=== PATIENT | male | born 1950 | race Caucasian/White ===

== ENCOUNTER 2022-09-28 17:01 | Emergency (ER) | payer MEDICARE, SELFPAY ==
[2022-09-28 17:24] VITALS: BP 164/94; PULSE 76; RESP 20; TEMP 36.7; O2SAT 95; BMI 31.4
--- NOTE | 2022-09-28 17:32 | XR_ITS ---
The [address] [address] Patient Name: JULISSA GERARDO MRN: [id number] date: 1950 Sex: M Assigned Patient Location: ER Current Patient Location: ER Accession/Order Number: [id number] Exam Date: 09/28/2022 18:40 Report Date: 09/28/2022 19:14 At the request of: VERITO MOCK Procedure: XR shoulder RT min 2V EXAM: XR shoulder RT min 2V HISTORY: injury c/o pain COMPARISON: None. TECHNIQUE: 3 views of the right shoulder. FINDINGS: There is a bony density noted inferior to the glenoid which may represent a humeral head osteophyte or a joint body. Degenerative changes of the acromioclavicular joint. No acute displaced fracture or dislocation. XR/XR shoulder RT min 2V IMPRESSION: Degenerative changes as described. No acute bony abnormality. Electronically authenticated by: MARINA MCKEON Date: 09/28/2022 19:14
--- NOTE | 2022-09-28 17:33 | CT_ITS ---
[address] [address] Patient Name: JULISSA GERARDO MRN: [id number] date: 1950 Sex: M Assigned Patient Location: ER Current Patient Location: Accession/Order Number: [id number] Exam Date: 09/28/2022 18:30 Report Date: 09/28/2022 19:32 At the request of: VERITO MOCK Procedure: CT chest w con EXAM: CT chest w con; [id number] REASON FOR EXAM: injury to chest and patient on blood thinners TECHNIQUE: Helical CT images of the chest were obtained after the administration of IV contrast. Multiplanar reformats and maximum intensity projection images were generated at the scanner. Dose reduction technique used: Automated exposure control and/or adjustment of the mA and/or kV according to patient size and/or use of iterative reconstruction technique. COMPARISON: None FINDINGS: Chest: Support devices: Cardiac pacemaker present. Visualized Thyroid: No nodules. Chest wall: Within normal limits. Sallie/mediastinum/esophagus: Small hiatal hernia containing less than 5% of the stomach. Thoracic lymph nodes: No enlarged supraclavicular, mediastinal, hilar or axillary lymph nodes. Heart and vasculature: -No pericardial effusion or aortic aneurysm. -No large embolism of the central pulmonary artery. -Borderline dilatation of the main pulmonary artery as well as dilatation of both the right and left main pulmonary arteries. -Moderate cardiomegaly. -Mild coronary artery calcifications. Visualized portions of the upper abdomen: Within normal limits. Musculoskeletal: -No acute fracture, dislocation, or suspicious osseous lesion. -There are a few foci of gas in the region of the right subscapular recess could represent intra-articular nitrogen gas. 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 -No significant soft tissue hematoma within the [id number]. Lungs/airways: -Mild right dependent atelectasis and/or scarring. -No significant nodule or infiltrate. -The central airways are patent. Pleura: No pleural effusion or pneumothorax. CT/CT chest w con IMPRESSION: 1. No acute abnormality in the thorax. Specifically, no significant hematoma demonstrated. 2. There are a few foci of gas in the region of the right subscapular recess which could represent intra-articular nitrogen gas (not uncommonly seen in the setting of osteoarthritis). Electronically authenticated by: RAHUL MONTANEZ Date: 09/28/2022 19:32
--- NOTE | 2022-09-28 17:51 | ED.TRAUMA1 ---
HPI - Trauma <HARLEEN Romero - Last Filed: 09/28/22 20:02> General Chief Complaint: Extremity Injury, Upper Stated Complaint: FALL, SHOULDER PAIN Time Seen by Provider: 09/28/22 17:37 Source: patient Mode of arrival: walk-in Limitations: no limitations History of Present Illness HPI narrative: patient is a pleasant 72-year-old male who presents to the emergency department for the evaluation of pain in the right shoulder and chest wall after an injury just prior to arrival. Patient states several hours ago he was playing pickle ball when he tripped and fell on his right side. He is on Xarelto. He denies head injury, loss of consciousness. He denies neck or back pain. He reports pain to the posterior right shoulder and posterior lateral chest wall. He denies any abdominal pain, pelvic pain, lower extremity pain. Pain is worse in the right shoulder with abduction. Related Data Home Medications Medication Instructions Recorded Confirmed rivaroxaban 20 mg tablet (Xarelto) 20 mg PO DAILY 09/28/22 09/28/22 Previous Rx's Medication Instructions Recorded hydrocodone 5 mg-acetaminophen 325 1 tab PO Q6H pain #12 tabs 09/28/22 mg tablet methocarbamol 750 mg tablet 750 mg PO TID PRN pain #20 tabs 09/28/22 Allergies Allergy/AdvReac Type Severity Reaction Status Date / Time No Known Drug Allergies Allergy Verified 09/28/22 17:23 Review of Systems <HARLEEN Romero - Last Filed: 09/28/22 20:02> ROS Constitutional Denies: fever or chills Ears, nose, mouth, and throat Denies: throat pain or neck pain Cardiovascular Denies: chest pain Respiratory Denies: shortness of breath or cough Gastrointestinal Denies: nausea or vomiting Genitourinary Denies: painful urination Musculoskeletal Reports: extremity pain; Denies: back pain or neck pain Integumentary/Breast Denies: rash Neurological Denies: headache Hematologic/Lymphatic Reports: easy bruising Exam <HARLEEN Romero - Last Filed: 09/28/22 20:02> Narrative Exam Narrative: Gen.: Awake, alert, in no distress Head: Normocephalic, atraumatic ENT: Moist mucous membranes, C-spine nontender with full range of motion Respiratory: No respiratory distress, lungs clear bilaterally; diffuse minimal chest tenderness of the posterior lateral chest wall. No flail chest, no crepitance, no ecchymosis noted. Cardio: Regular rate and rhythm Gastrointestinal: Abdomen is soft, nondistended and nontender to palpation, pelvis is stable and hips are nontender Extremities: Moves extremities equally, no injuries noted, normal hip flexion bilaterally Psych: Normal mood and affect Neuro: No focal neuro deficit Skin: Warm, dry, intact Constitutional Vital Signs, click to edit/add: Last Vital Signs Temp 98.1 F 09/28/22 17:24 Pulse 76 09/28/22 17:24 Resp 20 09/28/22 17:24 BP 164/94 H 09/28/22 17:24 Pulse Ox 95 09/28/22 17:24 O2 Del Method Nasal Cannula 09/28/22 17:24 <Chapo Evans MD - Last Filed: 09/28/22 20:11> Constitutional Vital Signs, click to edit/add: Last Vital Signs Temp 98.1 F 09/28/22 17:24 Pulse 76 09/28/22 17:24 Resp 20 09/28/22 17:24 BP 164/94 H 09/28/22 17:24 Pulse Ox 95 09/28/22 17:24 O2 Del Method Nasal Cannula 09/28/22 17:24 Course <HARLEEN Romero - Last Filed: 09/28/22 20:02> Vital Signs Vital signs: Vital Signs Temperature 98.1 F 09/28/22 17:24 Pulse Rate 76 09/28/22 17:24 Respiratory Rate 20 09/28/22 17:24 Blood Pressure 164/94 H 09/28/22 17:24 Pulse Oximetry 95 09/28/22 17:24 Oxygen Delivery Method Nasal Cannula 09/28/22 17:24 Temperature 98.1 F 09/28/22 17:24 Pulse Rate 76 09/28/22 17:24 Respiratory Rate 20 09/28/22 17:24 Blood Pressure 164/94 H 09/28/22 17:24 Pulse Oximetry 95 09/28/22 17:24 Oxygen Delivery Method Nasal Cannula 09/28/22 17:24 <Chapo Evans MD - Last Filed: 09/28/22 20:11> Vital Signs Vital signs: Vital Signs Temperature 98.1 F 09/28/22 17:24 Pulse Rate 76 09/28/22 17:24 Respiratory Rate 20 09/28/22 17:24 Blood Pressure 164/94 H 09/28/22 17:24 Pulse Oximetry 95 09/28/22 17:24 Oxygen Delivery Method Nasal Cannula 09/28/22 17:24 Temperature 98.1 F 09/28/22 17:24 Pulse Rate 76 09/28/22 17:24 Respiratory Rate 20 09/28/22 17:24 Blood Pressure 164/94 H 09/28/22 17:24 Pulse Oximetry 95 09/28/22 17:24 Oxygen Delivery Method Nasal Cannula 09/28/22 17:24 MDM - Trauma <HARLEEN Romero - Last Filed: 09/28/22 20:02> MDM Narrative Medical decision making narrative: IV was established, labs were drawn as the patient has a chest wall injury and is anticoagulated. He is sent for x-rays of the right shoulder and CT of the chest. x-rays of the right shoulder and CT of the chest with contrast were reviewed by the radiologist showing no evidence of acute process. Patient has a benign exam, consistent with right shoulder contusion and chest wall contusion. He is placed in a right shoulder sling for comfort, rest, ice, gentle stretching. Follow-up with PCP. [place] and Robax[place] given for home. Return to the Emergency Room if symptoms change or worsen. Patient was reevaluated by Dr. evans prior to discharge. Medical Records Attestation: I reviewed the patient's medical records. Lab Data Attestation: I reviewed the patient's lab results. Labs: Lab Results 09/28/22 Range/Units 17:45 WBC 12.7 H (4.0-11.0) 10^3/uL RBC 4.76 (4.70-6.10) 10^6/uL Hgb 15.3 (14.0-18.0) g/dL Hct 43.0 (42.0-54.0) % MCV 90.3 (80.0-94.0) fL MCH 32.1 (25.9-34.0) pg MCHC 35.6 H (29.9-35.2) g/dL RDW 12.5 (11.0-15.0) % Plt Count 196 (150-450) 10^3/uL MPV 9.2 L (9.5-13.5) fL Neut % (Auto) 71.9 (43.0-75.0) % Lymph % (Auto) 16.4 L (20.5-60.0) % [place] % (Auto) 8.3 (1.7-12.0) % Eos % (Auto) 2.0 (0.9-7.0) % Baso % (Auto) 0.9 (0.2-2.0) % Neut # (Auto) 9.2 H (1.4-6.5) 10^3/uL Lymph # (Auto) 2.1 (1.2-3.8) 10^3/uL [place] # (Auto) 1.1 H (0.3-0.8) 10^3/uL Eos # (Auto) 0.3 (0.0-0.7) 10^3/uL Baso # (Auto) 0.1 (0.0-0.1) 10^3/uL Abs Immat Gran (auto) 0.06 H (0.00-0.03) 10^3/uL Imm/Tot Granulo (auto) 0.5 (0.0-0.5) % PT 11.0 (9.0-11.6) sec INR 1.04 Sodium 138 (136-145) mmol/L Potassium 4.3 (3.5-5.1) mmol/L Chloride 102 (98-107) mmol/L Carbon Dioxide 29.0 (21.0-32.0) mmol/L Anion Gap 11.3 BUN 18.0 (7.0-18.0) mg/dL Creatinine 0.97 (0.70-1.30) mg/dL Est GFR ( Amer) >60 (>=60) Est GFR (Non-Af Amer) >60 (>=60) BUN/Creatinine Ratio 18.6 Glucose 104 (74-106) mg/dL Calcium 9.4 (8.5-10.1) mg/dL Total Bilirubin 0.6 (0.2-1.0) mg/dL AST 28 (15-37) U/L ALT 47 (16-63) U/L Alkaline Phosphatase 80 (46-116) U/L Total Protein 7.9 (6.4-8.2) g/dL Albumin 4.3 (3.4-5.0) g/dL Globulin 3.6 g/dL Albumin/Globulin Ratio 1.2 Imaging Data XR shoulder: Attestation: I have reviewed the pertinent imaging results. Radiologist's impression: Procedure: XR shoulder RT min 2V EXAM: XR shoulder RT min 2V HISTORY: injury c/o pain COMPARISON: None. TECHNIQUE: 3 views of the right shoulder. FINDINGS: There is a bony density noted inferior to the glenoid which may represent a humeral head osteophyte or a joint body. Degenerative changes of the acromioclavicular joint. No acute displaced fracture or dislocation. IMPRESSION: Degenerative changes as described. No acute bony abnormality. Electronically authenticated by: MARINA MCKEON Date: 09/28/2022 19:14 CT chest: Attestation: I have reviewed the pertinent imaging results. Radiologist's impression: Procedure: CT chest w con EXAM: CT chest w con; [id number] REASON FOR EXAM: injury to chest and patient on blood thinners TECHNIQUE: Helical CT images of the chest were obtained after the administration of IV contrast. Multiplanar reformats and maximum intensity projection images were generated at the scanner. Dose reduction technique used: Automated exposure control and/or adjustment of the mA and/or kV according to patient size and/or use of iterative reconstruction technique. COMPARISON: None FINDINGS: Chest: Support devices: Cardiac pacemaker present. Visualized Thyroid: No nodules. Chest wall: Within normal limits. Sallie/mediastinum/esophagus: Small hiatal hernia containing less than 5% of the stomach. Thoracic lymph nodes: No enlarged supraclavicular, mediastinal, hilar or axillary lymph nodes. Heart and vasculature: -No pericardial effusion or aortic aneurysm. -No large embolism of the central pulmonary artery. -Borderline dilatation of the main pulmonary artery as well as dilatation of both the right and left main pulmonary arteries. -Moderate cardiomegaly. -Mild coronary artery calcifications. Visualized portions of the upper abdomen: Within normal limits. Musculoskeletal: -No acute fracture, dislocation, or suspicious osseous lesion. -There are a few foci of gas in the region of the right subscapular recess could represent intra-articular nitrogen gas. 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 -No significant soft tissue hematoma within the [id number]. Lungs/airways: -Mild right dependent atelectasis and/or scarring. -No significant nodule or infiltrate. -The central airways are patent. Pleura: No pleural effusion or pneumothorax. IMPRESSION: 1. No acute abnormality in the thorax. Specifically, no significant hematoma demonstrated. 2. There are a few foci of gas in the region of the right subscapular recess which could represent intra-articular nitrogen gas (not uncommonly seen in the setting of osteoarthritis). Electronically authenticated by: RAHUL MONTANEZ Date: 09/28/2022 19:32 <Chapo Evans MD - Last Filed: 09/28/22 20:11> [facility] Narrative Medical decision making narrative: IV was established, labs were drawn as the patient has a chest wall injury and is anticoagulated. He is sent for x-rays of the right shoulder and CT of the chest. x-rays of the right shoulder and CT of the chest with contrast were reviewed by the radiologist showing no evidence of acute process. Patient has a benign exam, consistent with right shoulder contusion and chest wall contusion. He is placed in a right shoulder sling for comfort, rest, ice, gentle stretching. Follow-up with PCP. [place] and Robaxin given for home. Return to the Emergency Room if symptoms change or worsen. Patient was reevaluated by Dr. evans prior to discharge. Radiologist commented on nonspecific small air/gas forming around right subscapular area. Patient has no pain to the right subscapular area. He has no bruising, ecchymosis, or any signs of injury to that area. Patient was educated on using Tylenol every 4 hours for pain, patient was sent home with pain prescription as well. Patient understands not to use norco together. Patient was educated about Using ice 20 minutes on, 20 minutes off. Patient was educated on using incentive spirometer and final with PCP. I, Dr Evans, have reviewed the above progress note and course of action in the ER; agree with the above. I have personally seen and evaluated this patient, gone over history and physical, and discussed disposition and treatment plan with the patient. Lab Data Labs: Lab Results 09/28/22 Range/Units 17:45 WBC 12.7 H (4.0-11.0) 10^3/uL RBC 4.76 (4.70-6.10) 10^6/uL Hgb 15.3 (14.0-18.0) g/dL Hct 43.0 (42.0-54.0) % MCV 90.3 (80.0-94.0) fL MCH 32.1 (25.9-34.0) pg MCHC 35.6 H (29.9-35.2) g/dL RDW 12.5 (11.0-15.0) % Plt Count 196 (150-450) 10^3/uL MPV 9.2 L (9.5-13.5) fL Neut % (Auto) 71.9 (43.0-75.0) % Lymph % (Auto) 16.4 L (20.5-60.0) % [place] % (Auto) 8.3 (1.7-12.0) % Eos % (Auto) 2.0 (0.9-7.0) % Baso % (Auto) 0.9 (0.2-2.0) % Neut # (Auto) 9.2 H (1.4-6.5) 10^3/uL Lymph # (Auto) 2.1 (1.2-3.8) 10^3/uL [place] # (Auto) 1.1 H (0.3-0.8) 10^3/uL Eos # (Auto) 0.3 (0.0-0.7) 10^3/uL Baso # (Auto) 0.1 (0.0-0.1) 10^3/uL Abs Immat Gran (auto) 0.06 H (0.00-0.03) 10^3/uL Imm/Tot Granulo (auto) 0.5 (0.0-0.5) % PT 11.0 (9.0-11.6) sec INR 1.04 Sodium 138 (136-145) mmol/L Potassium 4.3 (3.5-5.1) mmol/L Chloride 102 (98-107) mmol/L Carbon Dioxide 29.0 (21.0-32.0) mmol/L Anion Gap 11.3 BUN 18.0 (7.0-18.0) mg/dL Creatinine 0.97 (0.70-1.30) mg/dL Est GFR ( Amer) >60 (>=60) Est GFR (Non-Af Amer) >60 (>=60) BUN/Creatinine Ratio 18.6 Glucose 104 (74-106) mg/dL Calcium 9.4 (8.5-10.1) mg/dL Total Bilirubin 0.6 (0.2-1.0) mg/dL AST 28 (15-37) U/L ALT 47 (16-63) U/L Alkaline Phosphatase 80 (46-116) U/L Total Protein 7.9 (6.4-8.2) g/dL Albumin 4.3 (3.4-5.0) g/dL Globulin 3.6 g/dL Albumin/Globulin Ratio 1.2 Discharge Plan Discharge Chief Complaint: Extremity Injury, Upper Clinical Impression: Chest wall contusion, Contusion of right shoulder Patient Disposition: Home, Self-Care Time of Disposition Decision: 19:57 Condition: Good Prescriptions / Home Meds: New hydrocodone-acetaminophen 5-325 mg tablet 1 tab PO Q6H Qty: 12 0RF Rx Instructions: DX: M25.511 methocarbamol 750 mg tablet 750 mg PO TID PRN (Reason: pain) Qty: 20 0RF No Action Xarelto 20 mg tablet 20 mg PO DAILY Instructions: Contusion in Adults (ED), Shoulder Pain (ED), Chest Wall Pain (ED) Stand Alone Forms: Portal Instructions Referrals: SELENE MERCADO [Primary Care Provider] - 1 week
[2022-09-28 17:53] LABS: Basophils Absolute Auto 0.1 10^3/uL (0.0-0.1); Basophils Percent Auto 0.9 % (0.2-2.0); Eosinophils Absolute Auto 0.3 10^3/uL (0.0-0.7); Hemoglobin 15.3 g/dL (14.0-18.0); Immature Granulocytes Abs Auto 0.06 10^3/uL (0.00-0.03); Immature Granulocytes Pct Auto 0.5 % (0.0-0.5); Lymphocytes Absolute Auto 2.1 10^3/uL (1.2-3.8); Lymphocytes Percent Auto 16.4 % (20.5-60.0); Mean Corpuscular HGB Conc 35.6 g/dL (29.9-35.2); Mean Corpuscular Hemoglobin 32.1 pg (25.9-34.0); Mean Corpuscular Volume 90.3 fL (80.0-94.0); Mean Platelet Volume 9.2 fL (9.5-13.5); Monocytes Absolute Auto 1.1 10^3/uL (0.3-0.8); Monocytes Percent Auto 8.3 % (1.7-12.0); Neutrophils Absolute Auto 9.2 10^3/uL (1.4-6.5); Neutrophils Percent Auto 71.9 % (43.0-75.0); Platelet Count 196 10^3/uL (150-450); Red Blood Count 4.76 10^6/uL (4.70-6.10); Red Cell Distribution Width 12.5 % (11.0-15.0); White Blood Count 12.7 10^3/uL (4.0-11.0)
[2022-09-28] MEDS: HYDROCODONE/ACETAMINOPHEN 5-325 MG TABLET 1 TAB PO (17:59)
[2022-09-28] MEDS: ORPHENADRINE 60 MG/ 2 ML VIAL IV (18:00)
[2022-09-28 18:08] LABS: INR 1.04
[2022-09-28 18:14] LABS: Alanine Aminotransferase 47 U/L (16-63); Albumin Globulin Ratio 1.2; Albumin Level 4.3 g/dL (3.4-5.0); Alkaline Phosphatase 80 U/L (46-116); Anion Gap 11.3; Aspartate Amino Transferase 28 U/L (15-37); BUN Creatinine Ratio 18.6; Bilirubin Total 0.6 mg/dL (0.2-1.0); Calcium 9.4 mg/dL (8.5-10.1); Chloride 102 mmol/L (98-107); Estimated GFR (African America >60 (>=60); Estimated GFR (Non-African Ame >60 (>=60); Globulin 3.6 g/dL; Glucose 104 mg/dL (74-106); Potassium 4.3 mmol/L (3.5-5.1); Sodium 138 mmol/L (136-145); Total Protein 7.9 g/dL (6.4-8.2)
== END 2022-09-28 20:11 | disposition home or self-care (01) ==
PROVIDERS: Physician Assistant; Emergency Provider Emergency Medicine; Family Provider Internal Medicine Cardiovascular Disease; PCP Family Medicine
DX: S40.011A Contusion of right shoulder, initial encounter (principal); S20.211A Contusion of right front wall of thorax, initial encounter; W01.10XA Fall on same level from slipping, tripping and stumbling with subsequent striking against unspecified object, initial encounter; Y93.73 Activity, racquet and hand sports; Z79.01 Long term (current) use of anticoagulants; Z95.0 Presence of cardiac pacemaker
CPT/HCPCS: 36415; 71260; 73030; 80053; 85025; 85610; 99285; Q9967